=== PATIENT | male | born 1975 | race Hispanic/Latino ===

== ENCOUNTER 2024-01-08 05:22 | Emergency (ER) | payer BC, OTHER ==
[~2024-01-08] VITALS: Ht 175.3 cm; Wt 117.9 kg
[2024-01-08] MEDS: 0.9%NACL 1000ML 1,000 ML IV ONE (06:07)
[2024-01-08] MEDS: HYDROMORPHONE 1 MG INJ IVP ONE (06:07)
[2024-01-08] MEDS: HYDRALAZINE 20MG/ML VIAL IV ONE (06:07)
[2024-01-08 06:24] LABS: BASOPHILS # (AUTO) 0.08 K/uL (0.00-0.20); EOSINOPHILS # (AUTO) 0.15 K/uL (0.00-0.70); EOSINOPHILS % (AUTO) 1.9 % (0.0-8.0); HEMATOCRIT 48.8 % (42-54); IMMATURE GRANULOCYTE ABSOLUTE 0.02 K/uL (0-1); LYMPHOCYTES # (AUTO) 1.9 K/uL (1.0-4.8); LYMPHOCYTES % (AUTO) 24.4 % (21.0-51.0); MEAN CORPUSCULAR HEMOGLOBIN 31.3 pg (27.0-33.0); MEAN CORPUSCULAR HGB CONC 35.7 g/dL (32.0-36.0); MEAN CORPUSCULAR VOLUME 87.8 fL (79-99); MONOCYTES # (AUTO) 0.6 K/uL (0.1-1.0); MONOCYTES % (AUTO) 7.7 % (3.0-13.0); NEUTROPHILS # (AUTO) 5.1 K/uL (1.8-7.7); NEUTROPHILS % (AUTO) 64.7 % (40.0-77.0); PLATELET COUNT (AUTO) 66 K/uL (130-400); RED BLOOD CELL COUNT(AUTO) 5.56 MIL/uL (4.50-6.20); RED CELL DISTRIBUTION WIDTH 12.1 % (11.0-15.5); WHITE BLOOD COUNT (AUTO) 7.9 K/uL (4.8-10.8)
[2024-01-08 06:28] LABS: APPEARANCE,URINE CLEAR (CLEAR); BILIRUBIN,URINE NEGATIVE (NEGATIVE); COLOR,URINE LIGHT-YELLOW (YELLOW); GLUCOSE, URINE (UA) >=1000 mg/dL (NEGATIVE); KETONES,URINE 5 mg/dL (NEGATIVE); LEUKOCYTE ESTERASE ,URINE NEGATIVE Leu/uL (NEGATIVE); NITRATE,URINE NEGATIVE (NEGATIVE); OCCULT BLOOD,URINE LARGE (NEGATIVE); PROTEIN,URINE NEGATIVE (NEGATIVE); UROBILINOGEN,URINE 0.2 mg/dL (0.2-1.0)
[2024-01-08 06:29] LABS: ADD UA MICROSCOPIC YES
[2024-01-08 06:30] LABS: CREATININE 1.2 mg/dL (0.5-1.3); POTASSIUM 3.5 mmol/L (3.5-5.1)
[2024-01-08 06:32] LABS: MUCUS,URINE RARE LPF (None Seen); RBC,URINE TNTC /HPF (0-1); SQUAMOUS EPITHELIAL CELL,UR RARE /HPF (0-2); URIC ACID CRYSTALS,URINE RARE /LPF (None Seen); WBC,URINE 0-1 /HPF (0-1)
[2024-01-08 06:33] LABS: AMPHET/METH SCREEN,URINE NEGATIVE (NEGATIVE); BARBITURATE SCREEN, URINE NEGATIVE (NEGATIVE); BENZODIAZEPINES SCREEN,URINE NEGATIVE (NEGATIVE); CANNABINOID SCREEN,URINE NEGATIVE (NEGATIVE); COCAINE SCREEN,URINE NEGATIVE (NEGATIVE); OPIATE SCREEN,URINE NEGATIVE (NEGATIVE); PHENCYCLIDINE SCREEN,URINE NEGATIVE (NEGATIVE)
[2024-01-08 06:35] LABS: BILIRUBIN,TOTAL 0.9 mg/dL (0.2-1.0); TOTAL PROTEIN, SERUM 7.4 g/dL (6.0-8.3)
[2024-01-08 07:19] LABS: HEMOGLOBIN A1C 8.9 % (4.0-6.0)
[2024-01-08 07:52] VITALS: BP 158/83; PULSE 73; RESP 19; O2SAT 99
[2024-01-08] MEDS: INSULIN LISPRO 100 UNIT/ML 3ML SQ ONE (08:19)
[2024-01-08] MEDS: 0.9%NACL 1000ML 708 ML IV ONE (08:52)
[2024-01-08] MEDS: TAMSULOSIN HCL 0.4 MG CAP.ER.24H PO ONE (08:54)
[2024-01-08] MEDS: HYDROCODONE/ACETAMINOPHEN 10/325 MG TAB PO ONE (08:55)
[2024-01-08] MEDS ORDERED: TRAM50TA4 PO (10:09)
[2024-01-08] MEDS ORDERED: TAMS-1 PO (10:11)
== END 2024-01-08 10:24 | disposition home or self-care (01) ==
LOC: EDH 05:22
DX: N23 Unspecified renal colic (principal); M54.9 Dorsalgia, unspecified; I16.0 Hypertensive urgency; E11.9 Type 2 diabetes mellitus without complications; E66.9 Obesity, unspecified; I10 Essential (primary) hypertension
CPT/HCPCS: 99285; 74176; 96374; 96361; 96375; 83036; 80053; 80305; 85025; 36415; 81001; 96372; J1170; J7030 ×2; J0360